=== PATIENT | female | born 1965 | race African-American/Black ===

== ENCOUNTER 2022-05-16 10:28 | Emergency (ER) | payer OTHER ==
[~2022-05-16] VITALS: Ht 160 cm; Wt 86.0 kg
[2022-05-16] MEDS ORDERED: HYDROCODONE/ACETAMINOPHEN 5/325MG TABLET PO ONE (11:00)
[2022-05-16] MEDS ORDERED: METHOCARBAMOL 500MG TABLET PO ONE (11:00)
[2022-05-16] MEDS ORDERED: METH-773 MT (13:04)
[2022-05-16] MEDS ORDERED: LIDO1ADH23 TP (13:04)
[2022-05-16] MEDS ORDERED: NAPR-681 MT (13:04)
[2022-05-16 13:20] VITALS: BP 131/87
== END 2022-05-16 13:20 | disposition home or self-care (01) ==
LOC: ER 10:28
DX: R51.9 Headache, unspecified (principal); S16.1XXA Strain of muscle, fascia and tendon at neck level, initial encounter; V89.2XXA Person injured in unspecified motor-vehicle accident, traffic, initial encounter; Y93.89 Activity, other specified; Y92.89 Other specified places as the place of occurrence of the external cause; Y99.8 Other external cause status
CPT/HCPCS: 70486; 99284

== ENCOUNTER 2024-06-17 21:15 | Emergency (ER) | payer OTHER ==
[~2024-06-17] VITALS: Ht 162.6 cm; Wt 84.0 kg
[~2024-06-17 21:15] MED LIST: LIDO1ADH23 TP; METH-773 MT; NAPR-681 MT
[2024-06-17 21:28] VITALS: BP 119/77; PULSE 108; RESP 16; TEMP 101; O2SAT 99
[2024-06-17] MEDS: SODIUM CHLORIDE 0.9% 1,000 ML IV ONE (22:38)
[2024-06-17] MEDS: ONDANSETRON HCL 4MG/2ML INJ IV ONE (22:38)
[2024-06-17 22:47] LABS: DIFFERENTIAL COMMENT 1; HEMATOCRIT. 36.2 % (36.0-48.0); HEMOGLOBIN. 11.3 g/dL (12.0-16.0); MEAN CORPUSCULAR HGB CONC 31.3 g/dL (31.0-37.0); MEAN CORPUSCULAR VOLUME 73.5 fL (81.0-99.0); MEAN PLATELET VOLUME 9.1 fl (7.4-10.4); PLATELET 201 x1000/uL (130-400); RED BLOOD CELL COUNT 4.93 mill/uL (4.2-5.4); RED CELL DISTRIBUTION WIDTH 14.3 % (11.6-14.6); WHITE BLOOD COUNT 9.6 x1000/uL (4.5-11.0)
[2024-06-17 22:52] LABS: CHLORIDE 106 mEq/L (98-107); POTASSIUM 3.5 mEq/L (3.5-5.1); SODIUM 139 mEq/L (136-145)
[2024-06-17 22:53] LABS: CARBON DIOXIDE 25 mEq/L (21-32)
[2024-06-17 22:54] LABS: CALCIUM 9.2 mg/dL (8.7-10.4)
[2024-06-17 22:58] LABS: CREATININE 0.9 mg/dL (0.6-1.0); GLUCOSE 96 mg/dL (70-105)
[2024-06-17 22:59] LABS: UREA NITROGEN BLOOD 10 mg/dL (9-23)
[2024-06-17 23:00] LABS: ALANINE AMINOTRANSFERASE 31 IU/L (10-49); ALBUMIN 4.4 g/dL (3.2-4.8); ASPARTATE AMINOTRANSFERASE 44 IU/L (<34)
[2024-06-17 23:01] LABS: BILIRUBIN DIRECT 0.4 mg/dL (<=3.0); BILIRUBIN TOTAL 0.9 mg/dL (0.1-1.0); PROTEIN TOTAL 7.4 g/dL (6.0-8.3)
[2024-06-17 23:09] LABS: HYPOCHROMASIA 1+; MICROCYTOSIS 2+; PLATELET ESTIMATE NORMAL
== END 2024-06-18 01:05 | disposition home or self-care (01) ==
LOC: ER 21:15
DX: R50.9 Fever, unspecified (principal); R11.2 Nausea with vomiting, unspecified; E86.0 Dehydration; M79.10 Myalgia, unspecified site; Z20.822 Contact with and (suspected) exposure to COVID-19
CPT/HCPCS: 80076; 80048; 83690; 85025; 87804 ×2; 36415; 96374; 99283; 87426; J2405; J7030; Z7610 ×2